=== PATIENT | female | born 1945 | race Caucasian/White ===

== ENCOUNTER 2020-12-10 10:19 | Outpatient (REF) | payer MEDICARE, OTHER, SELFPAY ==
[2020-12-10 12:40] LABS: MANUAL DIFF FLAG NO
[2020-12-10 12:43] LABS: Basophils Percent Auto 0.7 % (0-2); Eosinophils Absolute Auto 0.1 X10*3/uL (0.0-0.4); Eosinophils Percent Auto 1.6 % (0-4); Hematocrit 34.8 % (37-47); Hemoglobin 11.4 g/dl (12.0-16.0); Imm Gran Abs Auto 0.01 X10*3/uL (0.00-0.03); Imm Gran Pct Auto 0.2 % (0.0-0.4); Lymphocytes Absolute Auto 0.9 X10*3/uL (1.2-4.9); Lymphocytes Percent Auto 20.8 % (20-40); Mean Corpuscular HGB Conc 32.8 g/dl (31.0-35.0); Mean Corpuscular Hemoglobin 33.9 pg (27.0-33.0); Mean Corpuscular Volume 103.6 fL (80-98); Mean Platelet Volume 10.5 fL (9.4-12.3); Monocytes Absolute Auto 0.6 X10*3/uL (0.1-1.2); Monocytes Percent Auto 12.9 % (2-11); Neutrophils Absolute Auto 2.9 X10*3/uL (2.0-8.3); Neutrophils Percent Auto 63.8 % (45-73); Platelet Count 204 X10*3/uL (160-400); Red Blood Count 3.36 X10*6/uL (4.20-5.50); Red Cell Distribution Width 13.2 % (11.0-16.0); White Blood Count 4.5 X10*3/uL (4.8-10.8)
[2020-12-10 13:29] LABS: Alanine Aminotransferase 17 U/L (0-31); Albumin Level 3.9 g/dL (3.5-5.0); Alkaline Phosphatase 58 U/L (39-117); Anion Gap 13 (12-20); Aspartate Amino Transferase 29 U/L (5-31); Bilirubin Total 0.4 mg/dL (0.0-1.0); Blood Urea Nitrogen 28 mg/dL (9-16); Calcium 9.2 mg/dL (8.4-10.2); Carbon Dioxide 25 mmol/L (22-29); Chloride 107 mmol/L (96-108); Estimated Glomerular Filt Rate > 60; Glucose Fasting 111 mg/dL (60-99); Iron 81 mcg/dL (30-160); Percent Iron Saturation 26 % (15-50); Sodium 140 mmol/L (135-145); Total Iron Binding Capacity 315 mcg/dL (228-428); Total Protein 6.5 g/dL (6.5-8.0); Unsaturated Iron Binding 234 ug/dL
[2020-12-10 13:31] LABS: Folate 6.6 ng/mL (> or = 4.0); Vitamin B12 > 2000 pg/mL (200-900)
[2020-12-10 13:52] LABS: Ferritin 63 ng/mL (10-250); Free T4 (Free Thyroxine) 0.87 ng/dL (0.71-1.85); Vitamin D 25-OH Total 35.1 ng/mL (>30)
[2020-12-10 14:00] LABS: Thyroid Stimulating Hormone 0.62 uIU/mL (0.32-4.0)
[2020-12-10 14:08] LABS: Estimated Average Glucose 105 mg/dL; Hemoglobin A1c % 5.3 %
[2020-12-11 13:47] LABS: Lyme Abs Screen <0.90 index
== END 2020-12-10 10:20 | disposition home or self-care (01) ==
LOC: HO.MANLDS 10:19
PROVIDERS: PCP Internal Medicine; Visit Provider Physician Assistant
DX: R53.83 Other fatigue (principal)
CPT/HCPCS: 36415; 80053; 82306; 82607; 82728; 82746; 83036; 83540; 84439; 84443; 85025; 86617; 86618

== ENCOUNTER 2020-12-31 15:11 | Outpatient (REF) | payer MEDICARE, OTHER, SELFPAY ==
[2020-12-31 16:59] LABS: MANUAL DIFF FLAG NO
[2020-12-31 17:04] LABS: Eosinophils Percent Auto 0.7 % (0-4); Hematocrit 34.8 % (37-47); Hemoglobin 11.4 g/dl (12.0-16.0); Imm Gran Abs Auto 0.01 X10*3/uL (0.00-0.03); Imm Gran Pct Auto 0.2 % (0.0-0.4); Lymphocytes Absolute Auto 0.8 X10*3/uL (1.2-4.9); Mean Corpuscular HGB Conc 32.8 g/dl (31.0-35.0); Mean Corpuscular Hemoglobin 34.4 pg (27.0-33.0); Mean Corpuscular Volume 105.1 fL (80-98); Mean Platelet Volume 10.2 fL (9.4-12.3); Monocytes Absolute Auto 0.6 X10*3/uL (0.1-1.2); Monocytes Percent Auto 14.4 % (2-11); Neutrophils Absolute Auto 2.6 X10*3/uL (2.0-8.3); Neutrophils Percent Auto 63.7 % (45-73); Platelet Count 178 X10*3/uL (160-400); Red Blood Count 3.31 X10*6/uL (4.20-5.50); Red Cell Distribution Width 13.1 % (11.0-16.0); White Blood Count 4.1 X10*3/uL (4.8-10.8)
== END 2020-12-31 15:12 | disposition home or self-care (01) ==
LOC: HO.MANLDS 15:11
PROVIDERS: PCP Internal Medicine; Visit Provider Physician Assistant
DX: D64.9 Anemia, unspecified (principal)
CPT/HCPCS: 36415; 85025

== ENCOUNTER 2024-08-15 13:30 | Outpatient (REF) | payer MEDICARE, OTHER, SELFPAY ==
[2024-08-15 13:46] LABS: Appearance Urine Clear; Color Urine Yellow; Glucose Urine UA Negative (Negative); Leukocyte Esterase Urine Moderate (2+) (Negative); Nitrite Urine Negative (Negative); UMIC TRIGGER UACC YES; Urine Blood Large (3+) (Negative); Urine Ketones Negative (Negative); Urine Protein 30 (1+) mg/dL (Neg-Trace)
[2024-08-15 13:53] LABS: Bacteria Urine None Seen (None Seen); RBC Urine >20 /HPF (0-2); Squamous Epithelial Cell Urine 0-2 /HPF (0-2); UACC Culture Trigger YES; WBC Urine >50 /HPF (0-5)
== END 2024-08-15 13:31 | disposition home or self-care (01) ==
LOC: HO.MANLNP 13:30
PROVIDERS: Visit Provider Physician Assistant
DX: R30.0 Dysuria (principal)
CPT/HCPCS: 81001; 87086

== ENCOUNTER 2024-08-29 10:40 | Outpatient (REF) | payer MEDICARE, OTHER, SELFPAY ==
--- OUTSIDE RECORDS SUMMARY | 2024-08-29 12:39 | XMS_ITS | Data Portability ---
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 REVIEW OF PRIOR EXTERNAL NOTES/RESULTS , ORDERING OF TEST(S) CATEGORY 2. INCLUDE WHO THE HISTORIAN IS AND RELATION TO PT AND WHY PT IS UNABLE TO GIVE COMPLETE HISTORY ELEMENT 3: RISK (LOW) PROVIDER MUST THOROUGHLY DOCUMENT ALL OF THE ELEMENTS COVERED [email or web address] Not available 09/03/2020 14:40:51 02/22/2021 02/22/2021 Patient agreed and verbally consents to this audio and video Telehealth appt via a secure platform [email or web address] Not available 02/22/2021 10:12:56 Plan of Treatment Reminders Order Date Submit Date Provider Last Modified By Organization Details Last Modified Time Details Appointments FOLLOW UP 15 2024 09:30A M YANELY QIU Not available Not available Not available Lab urinalysi s complete, reflex culture 2024 025 [facility], [address] [place] [address], [place], [address], 08/16/2024 12:57:58 urinalysi s, dipstick 2024 025 [email or web address] [facility], [address] [place] [address], [place], [address], 08/15/2024 09:35:12 iron + TIBC + ferritin, serum 2020 [facility], [address] [place] [address], [address], 12/11/2020 12:30:10 vitamin D, 25-hydrox y, total, serum 2020 [facility], [address] [place] [address], [address], 12/11/2020 12:30:10 CBC w/ auto diff 2020 [facility], [address] [place] [address], [address], 12/11/2020 12:30:10 CMP, serum or plasma 2020 021 [facility], [address] [place] [address], [address], 12/10/2020 10:07:18 TSH + free T4, serum 2020 021 [facility], [address] [place] [address], [place], [address], 12/10/2020 10:07:18 vitamin B12 + folate, serum or blood 2020 021 [facility], [address] [place] [address], [address], 12/10/2020 10:07:18 lyme disease igg+igm, serum, reflex western blot 2020 021 [facility], [address] [place] [address], [address], 12/12/2020 11:43:32 hemoglobi n A1c, QN, blood 2020 [facility], [address] [facility], [place], [address], 12/10/2020 10:07:18 Referral hand surgeon referral 2024 025 [email or web address], [address] [facility], [place] [address], [place], [address], 08/16/2024 09:15:05 Procedures None recorded. Surgeries None recorded. Imaging XR, shoulder, 2 or more view 2024 025 [facility], [address] [place], [address], 08/22/2024 08:48:46 XR, hand, 3 or more view - r/o fracture left hand from fall 2020 021 [email or web address] Not available 02/13/2021 11:18:37 Medication Orders sulfameth oxazole 800 mg-trimet hoprim 160 mg tablet 2024 025 [facility] #46149, [address] [place], [place], [id number], 08/15/2024 09:29:30 losartan 100 mg tablet 2024 025 [facility] #13089, [address] [place] [address], [id number], 08/15/2024 09:23:41 losartan 100 mg tablet 2020 021 [facility] #[id number], [address] [place] [address], [id number], 12/10/2020 10:04:52 Patient TargetsNo targets recorded. Patient InstructionsNo instructions recorded. Reason for Referral Hand Surgeon Referral for Ca rpal tunnel syndrome numbness bilateral finger tips + extensive OA Referring Physician: Lashawn Craig, Internal Medicine, Encounter Date: 08/15/2024 Results Created Date Observation Date Name Description Value Unit Range Abnormal Flag Note LastModifiedBy Organization Detail LastModifiedTime 08/16/19 25 08/15/2024 urina lysis , dipst ick Leukocytes Small Not Available [facility] [address] [facility] [address], [place], [address], 08/15/2024 09:33:40 08/16/19 25 08/15/2024 urina lysis , dipst ick Nitrite negati ve Not Available [facility] [address] [facility] [address], [place], [address], 08/15/2024 09:33:40 08/16/19 25 08/15/2024 urina lysis , dipst ick Urobilinogen .2 Not Available [facility] [address] [facility] [address], [place], [address], 08/15/2024 09:33:40 08/16/19 25 08/15/2024 urina lysis , dipst ick Protein 30 Not Available [address], [place], [address], 08/15/2024 09:33:40 08/16/19 25 08/15/2024 urina lysis , dipst ick pH 6.0 Not Available [facility] [address] [facility] [address], [place], [address], 08/15/2024 09:33:40 08/16/19 25 08/15/2024 urina lysis , dipst ick Blood Modera te Not Available [facility] [address] [facility] [address], [place], [address], 08/15/2024 09:33:40 08/16/19 25 08/15/2024 urina lysis , dipst ick Specific [place] 1.015 Not Available [facility] [address] [facility] [address], [place], [address], 08/15/2024 09:33:40 08/16/19 25 08/15/2024 urina lysis , dipst ick Ketone Negati ve Not Available [facility] [address] [facility] [address], [place], [address], 08/15/2024 09:33:40 08/16/19 25 08/15/2024 urina lysis , dipst ick Bilirubin Negati ve Not Available [facility] [address] [facility] [address], [place], [address], 08/15/2024 09:33:40 08/16/19 25 08/15/2024 urina lysis , dipst ick Glucose Negati ve Not Available [facility] [address] [facility] [address], [place], [address], 08/15/2024 09:33:40 08/16/19 25 08/15/2024 urina lysis , dipst ick Appearance Cloudy Not Available [facility] [address] [facility] [address], [place], [address], 08/15/2024 09:33:40 08/16/19 25 08/15/2024 urina lysis , dipst ick Color Yellow Not Available [facility] [address] [facility] [address], [place], [address], 08/15/2024 09:33:40 03/13/20 22 03/12/2022 US, magen x, carot id arter y No observ ation record ed. [email or web address] [facility] [address] [address], [place], [address], 08/15/2024 09:35:17 08/23/19 25 08/20/2024 XR, peter sujatha, 2 or more view No observ ation record ed. [email or web address] [facility] [address] [facility] [address], [place], [address], 08/22/2024 09:23:13 Result Notes None recorded. 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 YANELY QIU [address] [place], [address], [facility] 5 09:13:20 Degenera tive joint disease of hand 90250749 Active 2024 YANELY QIU [address] [place], [address], [facility] 5 09:13:48 Pain of right shoulder joint 84079146793 704233 Active 2024 YANELY QIU [address] [place], [address], [facility] 5 09:22:02 Dysuria 51360953 Active 2024 YANELY QIU [address] [place], [address], [facility] 5 09:23:40 Calcific tendinit is of shoulder 67249961 Active 2024 YANELY QIU [address] [place], [address], [facility] 5 09:24:25 Problem Notes None recorded. Procedures Surgical History None recorded. Imaging Results Imaging Date Name Status LastModified by Organiz ation Details LastModified Time 03/12/2022 US, duplex, carotid artery completed [email or web address] [facility] [address], [address], 08/15/2024 09:35:17 08/20/2024 XR, shoulder, 2 or more view completed [facility] [address] [facility] [address], [place], [address], 08/22/2024 09:23:13 Procedure Notes None recorded. Medical Equipment None Reported. Allergies No known drug allergies Medications Name Sig Start Date Stop Date Status Note LastModified by Organization Details LastModified Time losartan 50 mg tablet TAKE 1 TABLET BY MOUTH EVERY DAY 09/12 completed Not Available Not Available Not Available doxycycline hyclate 100 mg capsule Take 1 capsule twice a day by oral route. 10/19 completed Not Available Not Available Not Available fluorouraci l 5 % topical cream 08/15 completed Not Available Not Available Not Available sulfamethox azole 800 mg-trimetho prim 160 mg tablet TAKE 1 TABLET BY MOUTH EVERY 12 HOURS FOR 7 DAYS active Not Available Not Available No t Available amoxicillin 500 mg tablet TAKE 4 TABLETS BY MOUTH 1 HOUR PRIOR TO DENTAL PROCEDURE 08/15 completed Not Available Not Available Not Available phenazopyri dine 100 mg tablet 10/31 completed Not Available Not Available Not Available cephalexin 500 mg capsule 08/15 completed Not Available Not Available Not Available lisinopril 30 mg tablet TAKE 1 TABLET BY MOUTH ONCE DAILY 06/27 completed Not Available Not Available Not Available levofloxaci n 500 mg tablet 10/31 completed Not Available Not Available Not Available lisinopril 40 mg tablet TK 1 T PO QD 06/27 completed Not Available Not Available Not Available losartan 100 mg tablet TAKE 1 TABLET BY MOUTH EVERY DAY active Not Available Not Available No t Available doxycycline hyclate 100 mg tablet Take 1 tablet twice a day by oral route for 10 days. 06/01 completed Not Available Not Available Not Available amoxicillin 500 mg-potassiu m clavulanate 125 mg tablet TAKE 1 TABLET BY MOUTH TWICE DAILY FOR 7 DAYS. 08/15 completed Not Available Not Available Not Available Pneumovax-2 3 25 mcg/0.5 mL injection syringe 10/31 completed Not Available Not Available Not Available Co Q-10 100 mg capsule Take 1 capsule every day by oral route. active Not Available Not Available No t Available nitrofurant oin monohydrate /macrocryst als 100 mg capsule 08/15 completed Not Available Not Available Not Available Boostrix Tdap 2.5 Lf unit-8 mcg-5 Lf/0.5 mL intramuscul ar syringe 10/31 completed Not Available Not Available Not Available IBU 2 tablets bid active Not Available Not Available No t Available Tylenol 2 tablets 3 or 4 times a day active Not Available Not Available No t Available sodium fluoride 1.1 %-potassium nitrate 5 % dental paste use TID active Not Available Not Available Not Available Vitamin B12 1000mg once a day active Not Available Not Available No t Available Flucelvax Quad 9021-6893 (PF) 60 mcg (15 mcg x 4)/0.5 mL IM syringe 01/15 completed Not Available Not Available Not Available Shingrix (PF) 50 mcg/0.5 mL intramuscul ar suspension, kit 10/31 completed Not Available Not Available Not Available Fluzone High-Dose (PF) 180 mcg/0.5 mL intramuscul ar syringe 10/31 completed Not Available Not Available Not Available Fluad 2018- 65yr up(PF)45 mcg(15 mcgx3)/0.5 mL intramuscul ar syringe 10/31 completed Not Available Not Available Not Available Fluad Quad (6 5yr up)(PF) 60 mcg (15 mcg x 4)/0.5mL IM syringe ADM 0.5ML IM UTD 04/25 completed Not Available Not Available Not Available Vitals Date Recorded Body height Body mass index (BMI) Body weight Oxygen saturation Oxygen saturation in Arterial blood by Pulse oximetry Heart rate Systolic blood pressure Diastolic blood pressure Provider Name and Address Organization Details Last Updated DateTime 1 158.75 cm 24.3 kg/m2 92756.9 7 g 94 % 94 % 67 /min 144 mm[Hg] 86 mm[Hg] De[facility] 1 14:22:10 Date Recorded Body height Body mass index (BMI) Body weight Heart rate Oxygen saturation Oxygen saturation in Arterial blood by Pulse oximetry Systolic blood pressure Diastolic blood pressure Provider Name and Address Organization Details Last Updated DateTime 1 158.75 cm 24.4 kg/m2 25884.7 7 g 84 /min 98 % 98 % 140 mm[Hg] 70 mm[Hg] Evette Hernandez [facility] 1 09:59:35 Date Recorded Body height Body mass index (BMI) Body weight Heart rate Oxygen saturation Oxygen saturation in Arterial blood by Pulse oximetry Systolic blood pressure Diastolic blood pressure Provider Name and Address Organization Details Last Updated DateTime 1 158.75 cm 24.3 kg/m2 26125.6 1 g 91 /min 97 % 97 % 154 mm[Hg] 100 mm[Hg] YANELY QIU [address] [place], [address], [facility] 13:35:16 Date Recorded Body height Body mass index (BMI) Body weight Heart rate Oxygen saturation Oxygen saturation in Arterial blood by Pulse oximetry Systolic blood pressure Diastolic blood pressure Provider Name and Address Organization Details Last Updated DateTime 5 157.48 cm 24.5 kg/m2 52905.3 8 g 91 /min 95 % 95 % 144 mm[Hg] 88 mm[Hg] Hermelinda Ashley [facility] 5 09:03:46 Social History Question Answer Notes LastModified by Organizat ion Details LastModified Time Tobacco Smoking Status Former Smoker Not Available [facility] 03/27/2020 03:36:24 What Was The Date Of Your Most Recent Tobacco Screening? 08/15/2024 Information not available 08/15/2024 Do You Or Have You Ever Used Any Other Forms Of Tobacco Or Nicotine? No [email or web address] Information not available 08/15/2024 Sex: Unknown Functional Status None recorded. Mental Status None recorded. Family History Nothing Reported. Medical History No medical history recorded. Gynecological HistoryNo gynecological history recorded. Obstetrics History GPAL:G 0 P 0 0 0 0 Immunizations Vaccine Type Date Status Note Provider Nam e and Address Organization Details Recorded Time Influenza, split virus, quadrivalent, preservative 8 completed Heidy earl [facility] 06/27/2020 11:28:03 pneumococcal polysaccharide PPV23 8 completed Heidy earl [facility] 06/27/2020 11:28:03 COVID-19, mRNA, LNP-S, PF, 30 mcg/0.3 mL dose 1 completed Ebony earl, [facility] 02/26/2021 14:03:54 Influenza, split virus, quadrivalent, preservative 1 [facility] 14:04:06 COVID-19, mRNA, LNP-S, PF, 30 mcg/0.3 mL dose 2 [facility]21 13:27:20 Tdap 8 [facility]/27[facility]2020 11:28:03 zoster live 9 [facility]/27[facility]2020 11:28:03 zoster live 9 [facility]/27[facility]2020 11:28:03 Influenza, split virus, quadrivalent, preservative 9 [facility]/27[facility]2020 11:28:03 Pneumococcal conjugate PCV 13 6 [facility]/27[facility]2020 11:28:03 Influenza, split virus, quadrivalent, preservative 0 [facility]/27[facility]2020 11:28:03 COVID-19 vaccine, vector-nr, rS-ChAdOx1, PF, 0.5 mL 1 completed Deidra earl [facility] 09/03/2020 14:20:15 COVID-19 vaccine, vector-nr, rS-ChAdOx1, PF, 0.5 mL 1 [facility]2020 14:20:26 Past Encounters Encounter ID Performer Location Encounter Start Date Encounter Closed Date Diagnosis/Indication Diagnosis SNOMED-CT Code Diagnosis ICD10 Code Diagnosis Note [id number] Angela Taylor NP, [facility] [address] [facility] [address] 01/15/2018 09:45:58 01/15/2018 14:23:12 Low back pain 617302321 M54.5 Hypertensive disorder 38 260880 I10 stable [id number] Angela Taylor NP, [facility] [address] [facility],[place] [address] 10/04/2018 11:50:06 10/04/2018 12:24:50 Acute pharyngitis 988414626 J02.9 (-) rapid Cough 06985432 R05 CXR only if no improvemen t 2-3 days Hypertensive disorder [id number] [facility] [address] [facility] [address] 10/19/2018 09:16:23 10/19/2018 10:21:33 Hypertensive disorder 92019927 I10 stable Carpal dontrell nereyda syndrome 64545534 G56.03 Dyspnea on exertion 6084 5006 R06.09 normal cxr pulm/cardi ac exam normal today echo and stress test go to er if sever sob or if it is accompanie d by cp or palpitatio ns Screening procedure 2012 5006 Z13.9 Vitamin D deficiency [id number] [facility] [address] [place] [address],[place] [address] 11/23/2018 15:13:51 11/23/2018 15:44:14 Hypertensive disorder 17637289 I10 stable Dyspnea on exertion 6084 5006 R06.09 normal cxr abnormal exercise stress test normal nuclear study no further HERNANDEZ since then echo still pending [id number] [facility] [address] [facility] [address] 01/28/2019 13:19:59 01/28/2019 14:11:34 Hypertensive disorder 77232823 I10 stable Laceration of lower leg 874084690 S81.812A seems to be improving continue wound care Cellulitis 220772807 L03 .90 seems to be improving complete bactrim [id number] Ashley Funes [facility] [address] [facility],[place] [address] 03/16/2019 10:26:09 03/16/2019 10:58:53 Tick bite 65430393 W57.XXXA Hypertensive disorder 38 303048 I10 stable [id number] Ashley Funes [facility] [address] [facility] [address] 06/01/2019 10:13:56 06/01/2019 11:22:37 Adult health examination 185856373 Z00.00 Screening for cardiovascular system disease 076894243 Z13.6 Screening mammography 24 291853 Z12.31 Decreased estrogen level 426332520 E28.39 Hypertensive disorder 38 519024 I10 stable Body mass index 25-29 - overweight 842908906 Z68.25 very close to normal [id number] YANELY QIU [facility] [address] [facility] [address] 11/01/2019 09:18:41 11/01/2019 12:13:47 Hypertensive disorder 97120865 I10 the patient BP is high today at 140/70 will have her take her BP at home and see if it also high and report to me may just have white coat hypertensi on or may need increase on lisinopril dosage [id number] YANELY QIU [facility] [address] [facility],[place] [address] 04/25/2020 08:46:59 04/25/2020 09:19:47 Hypertensive disorder 25625056 I10 BP very elevated today, though it may be related to her food choices, her home reading are high will increase her medication dosage and see her back in 3 mo instead of 6 mo Osteoarthritis 337312024 M19.90 hip and knees, stable when on APAP/ibu [id number] YANELY QIU [facility] [address] [facility] [address] 06/27/2020 11:04:40 06/27/2020 12:12:54 Essential hypertension 86315149 I10 will stop lisinopril due to side effects and lack of control of BP and start on losartan and see if more effective Lightheadedness 71031624 8 R42 side effect of medication will switch to losartan and see if improvemen t of effects and BP control fu in a month [id number] YANELY QIU [facility] [address] [facility] [address] 07/25/2020 13:58:36 07/25/2020 15:07:05 Hypertensive disorder 82370381 I10 BP very elevated today, though it may be related to her food choices, her home reading are high will increase her medication dosage and see her back in 1 mo [id number] YANELY QIU [facility] [address] [facility],[place] [address] 09/03/2020 14:14:55 09/04/2020 16:02:40 Hypertensive disorder 99149582 I10 BP very elevated today, though it may be related to her food choices, her home reading are high will increase her medication dosage and see her back in 1 mo [id number] YANELY QIU [facility] [address] [facility] [address] 12/10/2020 09:53:53 12/10/2020 11:27:13 Hypertensive disorder 86423183 I10 BP is down significan t from prior BP readingsgo od at home per patient Fatigue 37513668 R53.83 will fu with lab work [id number] YANELY QIU [facility] [address] [facility] [address] 01/30/2021 13:28:38 01/30/2021 15:11:27 Active or passive immunization 180741490 Z23 advised Adult heal th examination 146487581 Z00.00 BP elevated in office due to white coather BP readings at home are excellent from last discussion Pain of left hand 049722 8267 90186 M79.642 FOSH left hand, will fu with xr r/o fracture or dislocatio n [id number] AYNELY QIU [facility] [address] [facility] [address] 02/22/2021 09:38:41 02/22/2021 15:08:36 Exposure to SARS-CoV-2 691537502 Z20.822 fu with testing at [facility] [id number] YANELY QIU [facility] [address] [facility] [address] [address] 08/15/2024 08:56:36 08/15/2024 09:58:56 Degenerative joint disease of hand 95444989 M19.042 recommende d ortho f/u Carpal dontrell nereyda syndrome 10265388 G56.03 Hypertensive disorder 38 596340 I10 good at home per patientdoe s need a refill since the amount she wasn't given was decreased d/t her being overdue for her f/u Pain of ri ght shoulder joint 0948353305 7682424 M25.511 will set up with R shoulder Dysuria 61525206 R30.0 provided urinesendi ng outgiven abx today, will change if needed Depression screening 171 761319 Z13.31 negative Health Concerns Section Related Observation LastModified by Organization Detai ls LastModified Time None Recorded Concern Status LastModified by Organization Details LastModified Time None Recorded Advance Directives Directive None Recorded Payers Encounter Date Sequence Insurance Name Policy Number Policy Santizo Covered Member ID Santizo Member ID Guarantor Name 09/03/2020 1 [place]: [facility] Ana Zapata [id number] 1 [id number] Ana Delacruz Benny 09/03/2020 2 [facility] [id number] Ana Zapata [id number] Ana Delacruz Benny 12/10/2020 1 [place] [facility] Ana Zapata [id number] Ana Delacruz Benny 12/10/2020 2 [facility] [id number] Ana Zapata [id number] Ana Delacruz Benny 01/30/2021 1 [facility] Ana Zapata [id number] Ana Zpaata 01/30/2021 2 [facility] [id number] Ana Zapata [id number] Ana Zapata 02/22/2021 1 MEDICARE B-[place]: [facility] Ana Zapata [id number] Ana Zapata 02/22/2021 2 [facility] [id number] Ana Zapata [id number] Ana Zapata 08/15/2024 1 MEDICARE B-[place]: [facility] Ana Zapata [id number] 1 [id number] Ana Zapata 08/15/2024 2 [facility] [id number] Ana Zapata [id number] Ana Zapata Notes Date Note Type Note Provider Name a nd Address Organization Details Recorded Time 1 text/html BP fu the patient reports today for BP recheck the patient BP is down from when she was checking it at home she is working on diet and exercise had the COVID vaccine today, doing well, no serious side effects the patient reports that her rechecks with BP at home are improved to she feels much better, no pressure or dizziness or headaches the medication is tolerable no changes today YANELY QIU [address] [place], [id number], [facility] [place] [facility] 09/03/2020 14:41:08 1 text/html BP fu today in the office the patient BP is 140/70, significantly better than it has been the patient is doing well on the BP medication with no side effects and no adjustment of their medications needed today at the appointment well-controlled on medication denies chest pain, sob, ankle swelling, orthopnea, palpitations did have some dizziness initially with the dose increase but has since subsided discussed that is was probably due to her BP dropping quickly which has since resolved her BP readings at home are excellent will continue on same dose patient reports ongoing fatigue will fu with labwork as it has been some time since she has had lab work done YANELY QIU [address] [place], [id number], [facility] [place] [facility] 12/10/2020 10:17:09 1 text/html Annual WellnessReported bypatient.Diet and Nutrition:healthy diet; discussed vitamin and supplement use; discussed portion control; discussed maintaining calcium balance; discussed diet improvement; eating well Fracture Risk:no history of fractures; no recent explained fracture; no sudden unexplained fractures; no previous musculoskeletal injuries Physical Activity:exercises on a regular basis; discussed weightbearing activities; discussed exercise habits; lives a very active lifestyle Additional Lifestyle Factors:no tobacco use; no alcohol intake Depression Risk:never feels sad, empty, or tearful; no loss of interest in activities; no significant changes in weight; no sleep disturbances or insomnia; no agitation; no loss of energy; no feelings of worthlessness or guilt; no thoughts of suicide; no history of depression; no history of mood disorders Hearing:no loss of hearing Vision:no vision problems kwaku nobles has normal readings at home YANELY QIU [address] [place], [id number], [facility] [place] [facility] 01/30/2021 14:01:00 1 text/html c/o COVID exposure telemed the patient reports her DIL was COVID positive, has been a week since initial exposuredenies symptoms at this timeunknown time frame of positive test for the patient, sometime at the start of the weekthe patient was also babysitting her grand-daughter who also had a fever, urgent care/keycase assembler said it was a virus, though not likely COVIDthe patient is currently asymptomatic, last exposure date was about a week ago so she is the correct time frame to be testedwill set up with testing for [facility], she did call her and tell her they have slots available today faxed to both the UC and the main hospitalpatient told to call in 30 minutes to see if it was faxed YANELY QIU [address] [place], [address], [facility] [place] [facility] 02/22/2021 10:13:10 5 text/html re-establish patient patient hasn't been seen since 02/22/21 due to several different factors presents today with UTI symptoms, reports they started this weekend, burning, frequency, general lethargy or feeling not well no fever, no chills, no sob, no flank pain the patient reports bilateral (L>R) numbness in the tips of her fingersdoes have hx of carpal tunnel surgery bilaterally and significant OA in both hands (R>L) the patient is right hand dominant recommended f/u with a hand surgeon given the patient reports she feels good, she is very active the patient BP is a little elevated in officedoes admit that she needs to lower on the sodium intakeand increase her fluids, not caffeine the patient reports sore R shoulder due to her dog tugging on her leashthe patient says it's been about a month, no sig change in pain, has trouble lifting when her arm is extended out from her body, some mild loss of flexion and internal rotation YANELY QIU [address] [place] [address], [place], [phone], [place] [facility] 08/15/2024 09:36:23 OBGyn Episode No OBEpisode recorded.
--- OUTSIDE RECORDS SUMMARY | 2024-08-29 12:39 | XMS_ITS | Continuity of Care Document ---
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 Name Role Phone Steven Noel DO Primary Care Physician Encounter 08/20/24 - 08/27/24 [facility] [address], [address] [place] [address]- Attending Physician: Lashawn Cameron Admitting Physician: Lashawn Cameron Referring Physician: Lashawn Cameron Encounter Type: OutPatient One Time Allergies, Adverse Reactions, Alerts No Known Allergies Medications lisinopril 20 mg oral tablet 1 tablet, By Mouth, Daily, # 30 tablet, 0 Refills, Maintenance, 08/09/09 2:43:58 AM EDT, Tablet Start Date: 08/09/09 Status: Ordered Quantity: 30.0 Unit: tablet Repeat number: 1 Results Radiology Reports * Exam Date Time Procedure Performing Provider Status 08/20/24 2:52 PM Shoulder Min 2 Views Right Sage , Apri l; Auth (Verified) Notes: (Shoulder Min 2 Views Right) Reason For Exam: PAIN IN RIGHT SHOULDER RESULT: Shoulder Min 2 Views Right Examination: Right shoulder performed on 08/20/2024. History: Reason: PAIN IN RIGHT SHOULDER Findings: Frontal internal and external rotation views of the right shoulder are submitted. There is narrowing of the glenohumeral articulation. No fractures are seen. Calcification related to the rotator cuff is noted. The AC joint is preserved. Healed right rib fractures are seen. The visualized lung parenchyma is unremarkable. IMPRESSION: Osteoarthritic change. Changes of calcific tendinopathy. WSN: [id number] Ordering Physician: Lashawn Craig Dictated By: Amada Henry MD Dictated Date/Time: 08/22/24 8:43 am Reviewed By: Amada Henry MD Signed By: Amada Henry MD Signed Date/Time: 08/22/24 8:43 am Transcribed By: CSSakshi Transcribed Date/Time: 08/22/24 8:42 am Patient Care team information Care Team Personnel Name: Steven Noel DO Position: Reference Physician Member Role: PCP Address: [address] [place] [address] Internal Medicine [place] [id number] Telecom: Care Team Related Persons Name: CHRISTIE SILVA Insurance Providers Guarantor name: JOSE ALFREDO YEE Health Plan Information #: 2 Payer: [employer] Member Number: [id number] Policy Number: NA Group Number: [id number] Health Plan Information #: 1 Payer: MEDICARE PART B OUTPT Member Number: [id number] Policy Number: NA Group Number: NA
[2024-08-31 05:23] LABS: Mumps Virus IgG Antibody >300.00 AU/mL; Rubeola IgG (Measles) >300.00 AU/mL
== END 2024-08-29 10:41 | disposition home or self-care (01) ==
LOC: HO.MANLDS 10:40
PROVIDERS: Visit Provider Physician Assistant
DX: Z01.84 Encounter for antibody response examination (principal)
CPT/HCPCS: 36415; 86735; 86762; 86765